=== PATIENT | male | born 1965 | race Caucasian/White ===

== ENCOUNTER 2020-05-26 08:18 | Outpatient (REF) | payer OTHER, SELFPAY ==
[2020-05-26 10:59] LABS: Alanine Aminotransferase 24 U/L (0-40); Blood Urea Nitrogen 18 mg/dL (9-16); Cholesterol 142 mg/dL; Estimated Glomerular Filt Rate > 60; HDL Cholesterol 41 mg/dL; LDL Cholesterol Calculated 76 mg/dl; Triglycerides 126 mg/dL
[2020-05-26 11:19] LABS: Anion Gap 13 (12-20); Carbon Dioxide 24 mmol/L (22-29); Chloride 103 mmol/L (96-108); Potassium 4.9 mmol/l (3.3-5.1); Sodium 135 mmol/L (135-145); Uric Acid 7.7 mg/dL (3.4-7.0)
== END 2020-05-26 08:19 | disposition home or self-care (01) ==
LOC: HO.10HDL 08:18
PROVIDERS: Visit Provider Family Medicine
DX: E78.00 Pure hypercholesterolemia, unspecified (principal); M10.9 Gout, unspecified
CPT/HCPCS: 80051; 80061; 82550; 82565; 84460; 84520; 84550

== ENCOUNTER 2021-07-15 09:12 | Outpatient (REF) | payer BC, SELFPAY ==
[2021-07-15 10:55] LABS: Anion Gap 10 (12-20); Blood Urea Nitrogen 17 mg/dL (9-16); Carbon Dioxide 25 mmol/L (22-29); Chloride 107 mmol/L (96-108); Estimated Glomerular Filt Rate > 60; Potassium 4.5 mmol/L (3.3-5.1); Sodium 137 mmol/L (135-145)
== END 2021-07-15 09:13 | disposition home or self-care (01) ==
LOC: HO.10HDL 09:12
PROVIDERS: Visit Provider Family Medicine
DX: I10 Essential (primary) hypertension (principal)
CPT/HCPCS: 36415; 80051; 82565; 84520

== ENCOUNTER 2022-06-02 12:29 | Outpatient (REF) | payer OTHER, SELFPAY ==
[2022-06-02 14:01] LABS: Alanine Aminotransferase 22 U/L (0-40); Anion Gap 16 (12-20); Aspartate Amino Transferase 24 U/L (5-37); Blood Urea Nitrogen 17 mg/dL (9-16); Carbon Dioxide 25 mmol/L (22-29); Chloride 104 mmol/L (96-108); Estimated Glomerular Filt Rate > 60; Potassium 5.3 mmol/L (3.3-5.1); Sodium 140 mmol/L (135-145)
== END 2022-06-02 12:30 | disposition home or self-care (01) ==
LOC: HO.10HDL 12:29
PROVIDERS: Visit Provider Family Medicine
DX: I10 Essential (primary) hypertension (principal); E78.00 Pure hypercholesterolemia, unspecified; Z79.899 Other long term (current) drug therapy
CPT/HCPCS: 36415; 80051; 82550; 82565; 84450; 84460; 84520

== ENCOUNTER 2023-04-18 12:09 | Outpatient (REF) | payer OTHER, SELFPAY ==
--- NOTE | ~2023-04-18 | XR_ITS ---
EXAMINATION: XR FOOT, LEFT CLINICAL INFORMATION: Left fifth toe pain COMPARISON: None available. TECHNIQUE: AP, lateral, and oblique views of the left foot. FINDINGS: Some mild degenerative changes are present at the first MTP joint as well as in the forefoot. A plantar calcaneal spur is noted. No other abnormality is seen. A finding is not seen to account for the patient's fifth toe pain. XR/XR foot LT min 3V IMPRESSION: Mild degenerative changes as described above. No acute finding.
== END 2023-04-18 12:10 | disposition home or self-care (01) ==
LOC: HO.XRAY 12:09
PROVIDERS: PCP Family Medicine; Visit Provider Family Medicine
DX: M79.675 Pain in left toe(s) (principal)
CPT/HCPCS: 73630

== ENCOUNTER 2023-05-28 08:54 | Outpatient (REF) | payer OTHER, SELFPAY ==
[2023-05-28 11:23] LABS: Anion Gap 14 (12-20); Blood Urea Nitrogen 12 mg/dL (9-16); Carbon Dioxide 25 mmol/L (22-29); Chloride 105 mmol/L (96-108); Estimated Glomerular Filt Rate > 60; Potassium 4.7 mmol/L (3.3-5.1); Sodium 139 mmol/L (135-145)
== END 2023-05-28 08:55 | disposition home or self-care (01) ==
LOC: HO.10HDL 08:54
PROVIDERS: Visit Provider Family Medicine
DX: I10 Essential (primary) hypertension (principal)
CPT/HCPCS: 36415; 80051; 82565; 84520

== ENCOUNTER 2023-08-21 08:27 | Outpatient (REF) | payer OTHER, SELFPAY ==
[2023-08-21 12:27] LABS: Alanine Aminotransferase 21 U/L (0-40); Aspartate Amino Transferase 19 U/L (5-37); Cholesterol 166 mg/dL (<200); HDL Cholesterol 38 mg/dL (>40); LDL Cholesterol Calculated 84 mg/dL (<100); Triglycerides 223 mg/dL (<150)
== END 2023-08-21 08:28 | disposition home or self-care (01) ==
LOC: HO.10HDL 08:27
PROVIDERS: Visit Provider Family Medicine
DX: E78.00 Pure hypercholesterolemia, unspecified (principal); Z79.899 Other long term (current) drug therapy
CPT/HCPCS: 36415; 80061; 82550; 84450; 84460

== ENCOUNTER 2024-08-01 09:20 | Outpatient (REF) | payer BC, SELFPAY ==
--- OUTSIDE RECORDS SUMMARY | 2024-08-01 09:57 | XMS_ITS | Patient Health Record ---
Author Organization [facility] Address [address] [place] [phone] Care Team Providers Care Yarn Winder Name Role Phone Norman LOPEZ, Jim Primary Care Provider Unavailab Rene Braden Jr Unavailable [phone] REASON FOR REFERRAL No Information MEDICATIONS Medication SIG (Take, Route, Frequency, Duration) Notes Start Date End Date Status MiraLax (colon prep) 8.3 ounce ((238) grams mixed with Gatorade or Crystal Light orally begin at 5:00 p.m. the day before the procedure for 1 day 05/16/2019 Active Lisinopril 40 MG 1 tablet Orally Once a day 12/24/2013 Active Simvastatin 20 MG 1 tablet in the even ing Orally Once a day 12/24/2013 Active Ibuprofen 800 MG 1 tablet with food o r milk as needed Orally prn Active IMMUNIZATIONS Vaccine Route Administration Date Status Comme nts Influenza Unknown 05/30/2018 Administered SOCIAL HISTORY Sex Assigned At : Social History Observation Description Sex Assigned At Unknown Alcohol Screen Question Answer Notes Did you have a drink contain ing alcohol in the past year? Yes How often did you have a dri nk containing alcohol in the past year? 2 to 4 times a month (2 points) How many drinks did you have on a typical day when you were drinking in the past year? 1 or 2 drinks (0 point) How often did you have 6 or more drinks on one occasion in the past year? Never (0 point) Points 2 Interpretation Negative PROBLEMS Problem Type ICD Code Onset Dates Problem Status W/U Status Risk SNOMED Code Notes Problem Colon cancer screening (V76.51) Active confirmed [id number] Encounters Encounter Location Date Provider Diagnosis [facility] [address] [place] [address] 07/09/2024 Rene Bain Jr PLAN OF TREATMENT Future Test Test Name Order Date COLONOSCOPY 05/16/2019 Next Appt Details Provider Name:Rene sexton Jr, 11/19/2024 10:20:00 AM, [address] [facility], [address], [place], [address], Insurance Providers Payer Name Payer Address Payer Phone Subscriber Number Group Number Insured Name Patient Relationship to Insured Coverage Start Date Coverage End Date [facility] [place] [place] [employer] PROF[employer]AL CLAIMS [address] [place] [address] [id number] CHELY MARTINEZ Self - patient is the insured MEDICAL (GENERAL) HISTORY Medical History History ICD Code hypertension elevated cholesterol anxiety sciatica Surgical History Surgery Date(Month/Year) carpal tunnel release-(both wrists)
[2024-08-01 10:58] LABS: Alanine Aminotransferase 24 U/L (0-40); Anion Gap 11 (12-20); Aspartate Amino Transferase 32 U/L (5-37); Blood Urea Nitrogen 13 mg/dL (9-16); Carbon Dioxide 25 mmol/L (22-29); Chloride 106 mmol/L (96-108); Estimated Glomerular Filt Rate > 60; Potassium 4.4 mmol/L (3.3-5.1); Sodium 138 mmol/L (135-145)
== END 2024-08-01 09:21 | disposition home or self-care (01) ==
LOC: HO.10HDL 09:20
PROVIDERS: Visit Provider Family Medicine
DX: I10 Essential (primary) hypertension (principal); E78.00 Pure hypercholesterolemia, unspecified; Z79.899 Other long term (current) drug therapy
CPT/HCPCS: 36415; 80051; 82550; 82565; 84450; 84460; 84520

== ENCOUNTER 2025-01-20 06:51 | Day surgery (SDC) | payer BC, SELFPAY ==
--- OUTSIDE RECORDS SUMMARY | 2024-12-24 12:03 | XMS_ITS ---
Author Organization [facility] Address [address] [place] [phone] Care Team Providers Care Supervisor Curing Room Name Role Phone Norman LOPEZ, Jim Primary Care Provider Unavailab Rene Braden Jr Unavailable REASON FOR VISIT COLON RECALL Encounters Encounter Location Date Provider Diagnosis [facility] [address] [facility] [address] [place] [phone] 07/09/2024 Rene Bain Jr Plan Of Treatment Next Appt Details Provider Name:Rene sexton Jr, 01/20/2025 08:20:00 AM, [address] [place] [address] , [place], [place], [phone], Progress Notes * CHELY MARTINEZDOB: [birth year] (58 yo M)Acc No.[id number]:07/09/2024 Patient:?JUMA MARTINEZREY :1965???Age:58 Y???Sex:Male Address:[address] [place] [address], [place], [address] * true * Date:? Generated for Printi ng/Fasuzeg/eTransmitting on:?12/24/2024 12:03 PM EDT
[2025-01-16 13:33] VITALS: BMI 34.4
--- NOTE | 2025-01-19 10:15 | HO.ANESPROP2 ---
Documented by User: Betty Barnhart NP 01/19/25 10:15 HPI - Anesthesia Eval Consult details Narrative: 59yo M for Colonoscopy [facility] Past Medical History Medical History Sciatica Anxiety Elevated cholesterol HTN (hypertension) Surgical History Surgical History H/O colonoscopy History of bilateral carpal tunnel release Social History Social History Household Members: Spouse Are you a primary home care associate to a significant other at home: No Do you presently have visiting nurse or other home services: No Patient Tobacco Use Status: Former Tobacco user Tobacco use type: Cigarette Substance Use Frequency: Occasionally Have you been hit, kicked, punched, or otherwise hurt by someone within the past year? If so, by whom?: No Are you DNR?: No Advance Directives: No Advance Directives Information Provided: Yes Poor oral hygiene: No Meds Allergies Allergy/AdvReac Type Severity Reaction Status Date / Time No Known Allergies (No Known Allergy Verified 01/20/25 07:15 Allergies*) Home Medications ?Medication ?Instructions ?Recorded ?Confirmed ?Last Taken ?Type coenzyme Q10 10 mg capsule (Co 10 mg PO TID 01/16/25 01/16/25 Unknown History Q-10) ibuprofen 800 mg tablet 800 mg PO Q6H PRN Pain 01/16/25 01/16/25 01/13/25 History lisinopril 10 mg tablet 10 mg PO DAILY 01/16/25 01/16/25 Unknown History simvastatin 40 mg tablet 40 mg PO BEDTIME 01/16/25 01/16/25 Unknown History Exam Height,Weight and Vital Signs: Height 5 ft 8 in Weight 102.512 kg Assessment and Plan Assessment Anesthesia Assessment: Chart Reviewed Documented by User: Radha Uriostegui MD 01/20/25 08:04 [facility] Past Medical History Medical History Sciatica Anxiety Elevated cholesterol HTN (hypertension) Surgical History Surgical History H/O colonoscopy History of bilateral carpal tunnel release History of Problems with Anesthesia: No Social History Social History Household Members: Spouse Are you a primary home care associate to a significant other at home: No Do you presently have visiting nurse or other home services: No Patient Tobacco Use Status: Former Tobacco user Tobacco use type: Cigarette Substance Use Frequency: Occasionally Have you been hit, kicked, punched, or otherwise hurt by someone within the past year? If so, by whom?: No Are you DNR?: No Advance Directives: No Advance Directives Information Provided: Yes Poor oral hygiene: No Meds Allergies Allergy/AdvReac Type Severity Reaction Status Date / Time No Known Allergies (No Known Allergy Verified 01/20/25 07:15 Allergies*) Home Medications ?Medication ?Instructions ?Recorded ?Confirmed ?Last Taken ?Type coenzyme Q10 10 mg capsule (Co 10 mg PO TID 01/16/25 01/16/25 Unknown History Q-10) ibuprofen 800 mg tablet 800 mg PO Q6H PRN Pain 01/16/25 01/16/25 01/13/25 History lisinopril 10 mg tablet 10 mg PO DAILY 01/16/25 01/16/25 Unknown History simvastatin 40 mg tablet 40 mg PO BEDTIME 01/16/25 01/16/25 Unknown History Exam Airway Mallampati Class: III TM Dist: >3cm Neck ROM: Full Loose/Missing/Broken Teeth: No Heart: RRR Lungs: CTA Assessment and Plan Final Anesthetic Review History of Problems with Anesthesia: No NPO: Yes ASA Class: II Final Preanesthetic Review: Meds/Allgs Chart Reviewed, Consent Obtained/Reviewed and Anes Risks/Benef Reviewed Patient Risk: Low Procedure Risk: Low Anesthetic Plan Anesthetic Plan: MAC: Disposition: Standard PACU
[2025-01-20 07:00] VITALS: BMI 33.0
[2025-01-20 07:13] VITALS: BP 130/88; PULSE 88; RESP 18; TEMP 36.8; O2SAT 96
[2025-01-20] MEDS: Lactated Ringers 1,000 ML 100 ML IVCONT (07:13)
--- NOTE | 2025-01-20 08:00 | MHC.SHP ---
Pre-Procedural Eval Section A - 24 Hr Update-Section A only Date of Service: 01/20/25 Section B - Complete if H&P > 30 days Chief Complaint: Encounter for screening for malignant neoplasm of Details of Present Illness: see H&P no changes Relevant Family History (Specify if Yes): No Relevant Social History: None Present Medications: see Short Stay Collaborative assessment Medical History: No relevant PMH History of Previous Operations: No relevant previous surgery Allergies: Allergies Allergy/AdvReac Type Severity Reaction Status Date / Time No Known Allergies (No Known Allergy Verified 01/20/25 07:15 Allergies*) Review of Systems Sugical H&P ROS: Negative: Constitution, Cardiovascular, Respiratory, Neurological, Psychiatric, Hem-Onc, Allergic/Immunologic, Gastrointestinal, Genitourinary, Musculoskeletal, Integumentary, Endocrine and Eyes/Ears/Nose/Throat Exam Surgical H&P Exam: Normal: HEENT, Normal: Heart, Normal: Lungs, Normal: Extremities, Normal: Abdomen, Normal: Skin and Normal: Neurological Plan Diagnosis/Plan: Unchanged I have reviewed the history and physical and performed a pertinent physical examination on my patient. No changes have occurred unless specified. Time Spent With Patient Time: Total time managing care of this patient today ____ minutes.
[2025-01-20 08:30] VITALS: BP 106/60; PULSE 77; RESP 16; TEMP 36.4; O2SAT 98
[2025-01-20 08:45] VITALS: BP 116/84; PULSE 69; RESP 16; TEMP 36.5; O2SAT 95
--- NOTE | 2025-01-21 07:25 | OP_ITS ---
DATE OF SERVICE: 01/20/2025 SURGEON: Rene Bain MD INDICATIONS: Colon cancer screening. PREOPERATIVE DIAGNOSIS: POSTOPERATIVE DIAGNOSIS: PROCEDURE PERFORMED: Colonoscopy to the terminal ileum with biopsy. ESTIMATED BLOOD LOSS: COMPLICATIONS: ANESTHESIA: Monitored anesthesia care. ASSISTANTS: SPECIMENS: DESCRIPTION OF PROCEDURE: A history and physical was performed. The risks and benefits of the procedure were explained to the patient. Informed consent was obtained. The patient was placed in the left lateral decubitus position. A digital rectal exam was performed and was found to be normal. The Olympus pediatric video colonoscope was introduced into the rectum and advanced to the cecum. The cecum was identified by transillumination, palpation, and identification of ileocecal valve. Examination was performed. The scope was removed. He tolerated the procedure well and was returned to the recovery area in stable condition. FINDINGS: The terminal ileum was normal. The visualized colonic mucosa was normal. The quality of the prep was good. There was a single polyp in the right colon measuring less than 5 mm that was removed with a biopsy forceps. No other polyps were identified. Retroflexed examination was normal. IMPRESSION: Colon polyp. RECOMMENDATION: Follow up the biopsy results. MD DELMAR Gong/DELTA / [id number]
== END 2025-01-20 09:17 | disposition home or self-care (01) ==
PROVIDERS: PCP Family Medicine; Visit Provider Internal Medicine Gastroenterology
PROC: 0DJD8ZZ Inspection of Lower Intestinal Tract, Via Natural or Artificial Opening Endoscopic (ICD-10-PCS; CPT 45378; principal; 2025-01-20 08:20)
DX: Z12.11 Encounter for screening for malignant neoplasm of colon (principal); D12.2 Benign neoplasm of ascending colon; Z86.0101 Personal history of adenomatous and serrated colon polyps; I10 Essential (primary) hypertension; E78.5 Hyperlipidemia, unspecified; Z87.891 Personal history of nicotine dependence; Z79.02 Long term (current) use of antithrombotics/antiplatelets; Z79.899 Other long term (current) drug therapy
CPT/HCPCS: 45380; 88305; J2003; J2250; J2704

== ENCOUNTER 2025-02-04 09:23 | Outpatient (AMB) | payer BC, SELFPAY ==
--- NOTE | 2025-02-04 08:35 | MHC.PC.OV ---
Vital Signs 02/04/25 08:36 Height 5 ft 8 in Weight 223 lb BMI 33.9 BP 128/80 Blood Pressure Location Lt brachial Position Sitting Pulse 72 Pulse Source Pulse Oximeter Temp 98 F Temp Source Axillary Pulse Oximetry (%) 98 Oxygen Delivery Method Room Air Intake Visit Reasons: 6 MO F/UP- SIMON PT Paper Reeler Required: No Accompanied by: Self / Same As Patient Allergies No Known Allergies (No Known Allergies*) Allergy (Verified 02/04/25 08:36) Tobacco use date assessed: 02/04/25 Dental Screening Dental Screen Date: 02/04/25 Did you have a dental visit in the last 12 months?: Yes Did you have a dental problem in the last 6 months where you did not have access to dental care?: No PFSH Medical History Hyperlipidemia Sciatica Anxiety HTN (hypertension) Surgical History H/O colonoscopy (~01/21/25) History of bilateral carpal tunnel release Family History (Updated 02/04/25 @ 09:42 by Angie Ponce MA) Mother No problems noted. Father No problems noted. Social History Household Members: Spouse Housing: House Are you a primary home care specialist to a significant other at home: No Do you presently have visiting nurse or other home services: No Patient Tobacco Use Status: Former Tobacco user Tobacco use type: Cigarette e-Cigarette/Vaping Use: Former Use Current occupational status: employed Cognitive needs: No Hearing needs: No Vision needs: Yes (rx glasses) Questionnaire PHQ-9 Over the last 2 weeks, how often have you been bothered by any of the following problems? 1. Little interest or pleasure in doing things: not at all 2. Feeling down, depressed, or hopeless: not at all 3. Trouble falling or staying asleep, or sleeping too much: not at all 4. Feeling tired or having little energy: not at all 5. Poor appetite or overeating: not at all 6. Feeling bad about yourself - or that you are a failure or have let yourself or your family down: not at all 7. Trouble concentrating on things, such as reading the newspaper or watching television: not at all 8. Moving or speaking so slowly that other people could have noticed. Or the opposite - being so fidgety or restless that you have been moving around a lot more than usual: not at all 9. Thoughts that you would be better off or of hurting yourself in some way: not at all Total score: 0 Depression Screening Interpretation: Negative Depression Screening Done: Yes Source: Developed by Drs. Karson Patricia, Salud Vyas, Varghese Fuentes and colleagues, with an educational amadou from [employer]. Thrive Questionnaire Date Thrive assessed: 02/04/25 I am a: Patient Within the past 12 months, did the food you bought not last and you didn't have the money to get more?: Never true Within the past 12 months, did you worry whether your food would run out before you got money to buy more?: Never true Do you have trouble paying for medicines?: No Do you have trouble getting transportation to medical appointments?: No Do you have trouble paying your heating and electricity bill?: No Do you have trouble taking care of your child, family member or friend?: No Do you have trouble with day-to-day activities such as bathing, preparing meals, shopping, managing finances, etc.?: No Are you currently unemployed and looking for a job?: No Are you interested in more education?: No THRIVE Score: 0 AUDIT C Alcohol Use Questionnaire (AUDIT-C) 1. How often do you have a drink containing alcohol?: Monthly or less 2. How many drinks containing alcohol do you have on a typical day when you are drinking?: 1 or 2 3. How often do you have six or more drinks on one occasion?: Less than monthly Total Score: 2 AIDE-7 AMB Questionnaire AIDE-7 Date AIDE - 7 assessed: 02/04/25 Feeling nervous, anxious, or on edge: 0 = Not at all Not being able to stop or control worryin = Not at all Worrying too much about different things: 0 = Not at all Trouble relaxin = Not at all Being so restless that it is hard to sit still: 0 = Not at all Becoming easily annoyed or irritable: 0 = Not at all Feeling afraid as if something awful might happen: 0 = Not at all Total AIDE-7 score (0-4 normal; 5-9 mild; 10-14 moderate; 15-21 severe): 0 Source: Developed by Drs. Karson Patricia, Salud Vyas, Varghese Fuentes and colleagues, with an educational amadou from [employer]. Physical exam (Primary Care) Vital Signs: Last Vital Signs Temp 98 F 02/04/25 08:36 Pulse 72 02/04/25 08:36 BP 128/80 02/04/25 08:36 Pulse Ox 98 02/04/25 08:36 Oxygen Delivery Method Room Air 02/04/25 08:36 BMI result Body Mass Index 33.9 Tobacco/Smoking Status: Tobacco use Status Tobacco use date assessed 02/04/25 02/04/25 08:38 Patient Tobacco Use Status Former Tobacco user 02/04/25 08:38 Tobacco use type Cigarette 02/04/25 08:38 e-Cigarette/Vaping Use Former Use 02/04/25 08:38 PHQ-9: PHQ-9 Score PHQ-9: Total score 0 02/04/25 09:43 Depression Screening Interpretation: Negative Thrive Assessment: Date of Thrive Assessment Date Thrive assessed 02/04/25 02/04/25 08:38 Coding Level of Care Code New Pt Level 4 (28367) Complex EM visit Add On G2211 Diagnoses Hyperlipidemia E78.5 HTN (hypertension) I10 Anxiety F41.9 Assessment & Plan Assessment & Plan (1) Hyperlipidemia: Code(s): E78.5 - Hyperlipidemia, unspecified Category: Medical (2) HTN (hypertension): Code(s): I10 - Essential (primary) hypertension Category: Medical Plan: BP is in range, continue current medications (3) Anxiety: Code(s): F41.9 - Anxiety disorder, unspecified Category: Medical Plan: Mostly has situational anxiety. Not on current meds. Plan History of Present Illness - The patient is a 59-year-old male presenting with a wellness visit and management of anxiety disorder. - Anxiety disorder: The patient reports late-onset anxiety beginning around age 48, triggered by an episode [place] an amusement park and subsequently during flights. - The anxiety episodes are not debilitating, and the patient has learned to manage them mentally without medication. - Previously prescribed medication for anxiety was discarded as it was no longer needed. - Preventative care: The patient has undergone a colonoscopy with normal results. 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 Review of Systems - Psychiatric: Reports occasional anxiety episodes, denies need for medication. Physical Exam General: Cooperative and healthy appearing Nutritional Appearance: Well nourished Orientation/consciousness: Patient oriented x3 Limitations: No limitations Head: Normal to inspection General: Appearance normal, both eyes and all related structures Neck: Normal visual inspection Chest: Normal palpation of entire chest wall Respiratory: N ormal respiratory effort Neurology: Patient oriented x3, no disorientation or confusion noted. Results - Colonoscopy: Normal results reported. Plan 1. Anxiety Disorder - Continue current management without medication as the patient reports effective self-management of anxiety. 2. Preventative Care: Colonoscopy - Colonoscopy results were normal, no further immediate action required. Discussion Notes I discussed with the patient the management of his anxiety disorder, emphasizing the effectiveness of his current self-management strategies without medication. We also reviewed the normal results of his recent colonoscopy, confirming no further immediate action is necessary. Follow-up was scheduled for six months, and the patient was advised to contact us if any issues arise before then. Patient Instructions - Continue managing anxiety without medication as currently effective. - Schedule follow-up appointment in six months. - Contact the clinic if any new symptoms or concerns arise. Orders: Orders Liver Panel Today E78.5 - Hyperlipidemia, unspecified, F41.9 - Anxiety disorder, unspecified, I10 - Essential (primary) hypertension Complete Blood Count no Diff Today E78.5 - Hyperlipidemia, unspecified, F41.9 - Anxiety disorder, unspecified, I10 - Essential (primary) hypertension Basic Metabolic Panel Today E78.5 - Hyperlipidemia, unspecified, F41.9 - Anxiety disorder, unspecified, I10 - Essential (primary) hypertension Lipid Panel Today E78.5 - Hyperlipidemia, unspecified, F41.9 - Anxiety disorder, unspecified, I10 - Essential (primary) hypertension Thyroid Stimulating Hormone Today E78.5 - Hyperlipidemia, unspecified, F41.9 - Anxiety disorder, unspecified, I10 - Essential (primary) hypertension UA and rflx microscopic Today E78.5 - Hyperlipidemia, unspecified, F41.9 - Anxiety disorder, unspecified, I10 - Essential (primary) hypertension
[2025-02-04 08:36] VITALS: BP 128/80; PULSE 72; TEMP 36.6; O2SAT 98; BMI 33.9
--- OUTSIDE RECORDS SUMMARY | 2025-02-04 09:46 | XMS_ITS | Patient Health Record ---
Author Organization [facility] Address [address] [place] [address] Care Team Providers Care Hip Hop Performers Name Role Phone BJORN LEMA Primary Care Provider Rene Pinto Jr Unavailable [phone] Allergies No Known Allergies Results Component Value Reference Range Notes Pathology Reviewed date:01/26/2025 04:33:49 PM Interpretation: Performing Lab:[facility], [address] [place] [phone] Notes/Report: Reason For Referral Referring Provider First Name Jim Referring Provider Last Name Norman Referring Provider Speciality Internal M edicine Referred Organization [facility] Referred Provider Rene Bain Jr Referred Address [address],[place] [address],[place], [place],[address], Referred Provider Specialty Gastroentero logy General Notes Barbara Marks 2024 11:06:21 AM >requested referral from [place] at Dr. Hurtado' for appt with Dr. Bain on 11-19-24 Referral Priority Routine Referring Provider First Name BJORN Referring Provider Last Name TOREY Referred Organization [facility] Referred Provider Rene Bain Jr Referred Address [address] [place] [address],[address],[address],[place] Referred Provider Specialty Gastroentero logy General Notes Barbara Marks 2024 03:30:34 PM >requested call back from Dr. Lema's office to see if they will issue a referral before the patient sees Dr. Lema. Has a procedure with Kendrick Alexis Dawn 01/08/2025 09:47:56 AM >Dr. Lema will issue one referral for his procedure Referral Priority Routine Medications Medication SIG (Take, Route, Fr equency, Duration) Notes Start Date End Date Status Ibuprofen 800 MG 1 tablet with food o r milk as needed Orally prn as needed Active Co Q 10 10 MG as directed Orally Active Simvastatin 10 MG 1 tablet in the even ing Orally Once a day 12/24/2013 Active Lisinopril 40 MG 1 tablet Orally Once a day 2013 Active Immunizations Vaccine Route Administration Date Status Comme nts Influenza Unknown 05/30/2018 Administered Influenza Unknown 11/19/2024 Refused Social History Alcohol Screen Question Answer Notes Did you [...] Never (0 point) Points 2 Interpretation Negative Problems Problem Type SNOMED Code ICD Code Onset Dates Problem Status W/U Status Risk Notes Problem 923061407 Colon cancer screening (V76.51) Active confirmed Problem Colon cancer screening (417168202) Colon cancer screening (Z12.11) Active confirmed Problem Hemorrhoids (21858228) Hemorrhoids (K64.9) Active confirmed Problem [facility] current use of non-steroidal anti-inflammator y drug (581990777217067 ) NSAID long-term use (Z79.1) Active confirmed Problem History of adenomatous polyp of colon (184559488) History of adenomatous polyp of colon (Z86.0101) Active confirmed Vital Signs Temperature 98.0 degrees Fahrenheit 11/19/2024 Blood pressure diastolic 01 mm Hg 11/19/2024 Height 68 in 11/19/2024 Blood pressure systolic 001 mm Hg 11/19/2024 Weight 226 lbs 11/19/2024 BMI 34.36 kg/m2 11/19/2024 Encounters Encounter Location Date Provider Diagnosis [facility] Outpatient [address] [place] [phone] 01/20/2025 Rene Bain Jr Colon cancer screening Z12.11 ; History of adenomatous polyp of colon Z86.0101 and Colon polyps K63.5 [facility] [address] [place] [phone] 11/19/2024 Rene Bain Jr Colon cancer screening Z12.11 ; Hemorrhoids K64.9 ; History of adenomatous polyp of colon Z86.0101 and NSAID long-term use Z79.1 [facility] [address] [place] [phone] 07/09/[address] [facility] [address] [place] [phone] 01/26/2025 Rene Bain Jr Assessments Encounter Date Diagnosis (ICD Code) Assessment Notes Treatment Notes Treatment Clinical Notes Section Notes 01/20/2025 Colon cancer screening (ICD-10 - Z12.11) 01/20/2025 History of adenomatous polyp of colon (ICD-10 - Z86.0101) 11/19/2024 Colon cancer screening (ICD-10 - Z12.11) Colonoscopy material was printed We discussed the care and treatment of hemorrhoids today. We discussed a high-fiber diet. We recommended further evaluation of his symptoms with colonoscopy because of his family history of colon polyps and colon cancer. He is aware of risks and benefits and agrees to proceed. He is advised to stop ibuprofen 1 week before the procedure. 11/19/2024 Hemorrhoids (ICD-10 - K64.9) We discussed the care and treatment of hemorrhoids today. We discussed a high-fiber diet. We recommended further evaluation of his symptoms with colonoscopy because of his family history of colon polyps and colon cancer. He is aware of risks and benefits and agrees to proceed. He is advised to stop ibuprofen 1 week before the procedure. 01/20/2025 Colon polyps (ICD-10 - K63.5) 11/19/2024 History of adenomatous polyp of colon (ICD-10 - Z86.0101) We discussed the care and treatment of hemorrhoids today. We discussed a high-fiber diet. We recommended further evaluation of his symptoms with colonoscopy because of his family history of colon polyps and colon cancer. He is aware of risks and benefits and agrees to proceed. He is advised to stop ibuprofen 1 week before the procedure. 11/19/2024 NSAID long-term use (ICD-10 - Z79.1) We discussed the care and treatment of hemorrhoids today. We discussed a high-fiber diet. We recommended further evaluation of his symptoms with colonoscopy because of his family history of colon polyps and colon cancer. He is aware of risks and benefits and agrees to proceed. He is advised to stop ibuprofen 1 week before the procedure. Plan Of Treatment Future Test Test Name Order Date COLONOSCOPY 05/16/2019 Insurance Providers Payer Name Payer Address Payer Phone Subscriber Number Group Number Insured Name Patient Relationship to Insured Coverage Start Date Coverage End Date [facility] PROFESSIONAL CLAIMS [address] [place] [address] [id number] CHELY MARTINEZ Self - patient is the insured Medical (General) History Medical History History ICD Code hypertension elevated cholesterol anxiety sciatica Surgical History Surgery Date(Month/Year) carpal tunnel release-(both wrists)
--- OUTSIDE RECORDS SUMMARY | 2025-02-04 09:46 | XMS_ITS | Patient Health Record ---
[facility] Address [address] [place] [address] Care Team Providers Care Music Manager Name Role Phone Norman LOPEZ, Jim Primary Care Provider Unavailab Keely Marquez Unavailable [phone] Reason For Referral No Information Medications Medication SIG (Take, Route, Fr equency, Duration) Notes Start Date End Date Status Lisinopril 20 MG 1 tablet Orally Once a day Active Simvastatin 40 MG 1 tablet in the even ing Orally Once a day Active Problems No Known Problems Plan Of Treatment No Information Insurance Providers Payer Name Payer Address Payer Phone Subscriber Number Group Number Insured Name Patient Relationship to Insured Coverage Start Date Coverage End Date [facility] [address] [facility] [address] [id number] Panchito Davis Self - patient is the insured Medical (General) History Medical History History ICD Code High blood pressure Chicken pox Surgical History Surgery Date(Month/Year) carpal tunnel surgery (both wirst) 06/09
== END 2025-02-04 09:54 | disposition home or self-care (01) ==
LOC: HO.HMCHD 09:26
PROVIDERS: PCP Internal Medicine; Visit Provider Internal Medicine
DX: E78.5 Hyperlipidemia, unspecified (principal); I10 Essential (primary) hypertension; F41.9 Anxiety disorder, unspecified

== ENCOUNTER 2025-07-28 12:10 | Outpatient (REF) | payer OTHER, SELFPAY ==
--- OUTSIDE RECORDS SUMMARY | 2025-01-20 03:20 | XMS_ITS ---
Author Organization [facility] Address [address] [place] [address] Care Team Providers Care Prescription Clerk Lenses Name Role Phone BJORN LEMA Primary Care Provider Rene Pinto Jr Unavailable [phone] REASON FOR VISIT screening Encounters Encounter Location Date Provider Diagnosis [facility] [address] [place], [place] [phone] 01/20/2025 Rene Bain Jr Colon cancer screening Z12.11 ; History of adenomatous polyp of colon Z86.0101 and Colon polyps K63.5 Assessments Encounter Date Diagnosis (ICD Code) Assessment Notes Treatment Notes Treatment Clinical Notes Section Notes 01/20/2025 Colon cancer screening (ICD-10 - Z12.11) 01/20/2025 History of adenomatous polyp of colon (ICD-10 - Z86.0101) 01/20/2025 Colon polyps (ICD-10 - K63.5) Plan Of Treatment No Information Progress Notes * CHELY MARTINEZDOB: [birth year] (59 yo M)Acc No.[id number]:01/20/2025 COLON WITH MAC Patient: CHELY JANE Provider: Amy Bain MD :1965 A ge:59 Y S ex:Male Date:01/20/2025 Address:[address] [place], [place] [phone] Pcp:BJORN LEMA Subjective: * Chief Complaints: * S creening Assessment: * Assessment: 1. C olon cancer screening - Z12.11 (Primary) 2 . H istory of adenomatous polyp of colon - Z86.0101 3 . C olon polyps - K63.5 Plan: * Procedure Codes: 4 5380 COLONOSCOPY AND [id number] INTRVL 3+YRS PTS CLNSCP DOCD Billing Information: * Procedure Codes: 94751 COLONOSCOPY AND BIOPSY. 0529F INTRVL 3+YRS PTS CLNSCP DOCD. * The named appointment provid er may or may not be the originator of this progress note, and it is not deemed complete until electronically signed by the appointment provider. Sign off status: Pending * Provider: Amy Bain MD Date: 0 01/20/2025 Generated for Angie meza/Meg/Demarcusitting on: 04:15 PM EST
[2025-07-28 13:22] LABS: Hematocrit 46.9 % (42.0-52.0); Hemoglobin 16.0 g/dl (14.0-18.0); Mean Corpuscular HGB Conc 34.1 g/dl (31.0-36.0); Mean Corpuscular Hemoglobin 29.1 pg (27.0-33.0); Mean Corpuscular Volume 85.4 fL (80.0-98.0); NRBC Abs Auto 0.000 X10*3/uL (0.0-0.012); NRBC Pct Auto 0.0 /100WBC (0.0-0.2); Platelet Count 229 X10*3/uL (160-400); Red Blood Count 5.49 X10*6/uL (4.60-5.80); White Blood Count 10.4 X10*3/uL (4.8-10.8)
[2025-07-28 13:42] LABS: Alanine Aminotransferase 21 U/L (0-40); Albumin Level 4.6 g/dL (3.5-5.0); Alkaline Phosphatase 59 U/L (39-117); Anion Gap 12 (12-20); Aspartate Amino Transferase 49 U/L (5-37); Blood Urea Nitrogen 17 mg/dL (9-16); Calcium 9.4 mg/dL (8.4-10.2); Carbon Dioxide 24 mmol/L (22-29); Chloride 108 mmol/L (96-108); Cholesterol 181 mg/dL (<200); Estimated Glomerular Filt Rate > 60; HDL Cholesterol 43 mg/dL (>40); Potassium 4.0 mmol/L (3.3-5.1); Sodium 140 mmol/L (135-145); Total Protein 7.1 g/dL (6.5-8.0); Triglycerides 369 mg/dL (<150)
[2025-07-28 14:04] LABS: Thyroid Stimulating Hormone 1.01 uIU/mL (0.32-4.0)
--- OUTSIDE RECORDS SUMMARY | 2025-07-28 16:16 | XMS_ITS | Clinical Summary ---
Author Organization [facility] Address [address] [place] [address] Phone Care Team Providers Care Bisque Ware Dipper Name Role Phone Jim Austin MD Primary Care Provider Allergies No known active allergies Medications lisinopril (PRINIVIL,ZESTR IL) 10 MG tablet Take 1 tablet by mouth every morning. 4 Active simvastatin (ZOCOR) 40 MG tablet Take 40 mg by mouth nightly at bedtime. at bedtime. 4 Active meloxicam (MOBIC) 15 MG tablet Take 1 tablet (15 mg total) by mouth daily. 20 tablet 4 Active Additional Information Patient taking differently:15 mg Oral Daily,Takes for bursitis flare up, Reported on 03/12/2024 Active Problems No known active problems Social History Tobacco Use Types Packs/Day Years Used Date Smoking Tobacco: Former Cigarettes Smokeless Tobacco: Never Tobacco Cessation:Counseling Given: Not Answered Alcohol Use Standard Drinks/Week Comments Not Currently 0 (1 standard drink = 0.6 oz pur e alcohol) Education Answer Date Recorded Are you interested in more education? Not on radha e 10/26/2023 Are you concerned about learning? Not on file 10/26/2023 No 10/26/2023 No 10/26/2023 Digital Access Answer Date Recorded No 10/26/2023 No 10/26/2023 Reliable internet access at home? Not on file 10/26/2023 Device with a working camera? Not on file Sex and Gender Information Value Date Recorded Sex Assigned at Not on file Legal Sex Male 8:29 AM EDT Gender Identity Not on file Sexual Orientation Not on file Last Filed Vital Signs Vital Sign Reading Time Taken Comments Blood Pressure 150/92 01/04/2024 9:34 AM EDT Pulse 75 01/04/2024 9:34 AM EDT Temperature 36.7 C (98 F) 01/04/2024 9:34 AM EDT Respiratory Rate 16 01/04/2024 9:34 AM EDT Oxygen Saturation 98% 01/04/2024 9:34 AM EDT Inhaled Oxygen Concentration - - Weight 102.1 kg (225 lb) 03/12/2024 9:56 AM EDT Height 172.7 cm (5' 8 ) 10/26/2023 11:57 AM EDT Body Mass Index 34.21 10/26/2023 11:57 AM EDT Plan of Treatment Health Maintenance Due Date Last Done Comments Adult Td,Tdap Booster 1963 CREATININE LEVEL 1963 LIPID PANEL 1963 POTASSIUM LEVEL 1963 DEPRESSION SCREENING 1975 SMOKING Hx and SMOKELESS TOB ACCO SCREENING 11/16/1976 HEPATITIS C SCREENING 11/16/1981 HIV ONE-TIME SCREENING (18-6 5 YEARS) 11/16/1981 SCREENING FOR DIABETES 11/16/1998 COLOGUARD 11/16/2008 COLONOSCOPY 11/16/2008 COLORECTAL CANCER SCREENING 11/16/2008 FIT TEST 11/16/2008 FOBT 11/16/2008 SIGMOIDOSCOPY 11/16/2008 VIRTUAL COLONOSCOPY 11/16/2008 PNEUMOCOCCAL VACCINES (50+ y ears) (1 of 1 - PCV) 11/16/2013 ZOSTER VACCINES (1 of 2) 11/16/2013 INFLUENZA VACCINE (#1) 2025 COVID-19 VACCINE ( - 2024-2 6 season) 2025 RSV VACCINE (1 - 1-dose 75+ series) 11/16/2038 HEPATITIS A VACCINES Aged Out No long er eligible based on patient's age to complete this topic HIB VACCINES Aged Out No longer eligi ble based on patient's age to complete this topic MENINGOCOCCAL VACCINES (ACWY) Aged Out No longer eligible based on patient's age to complete this topic MENINGOCOCCAL VACCINES (B) Aged Out N o longer eligible based on patient's age to complete this topic Medical Devices Not on file Insurance HMO O O O O O Care Teams Bisque Ware Dipper Relationship Specialty Start Date End Date Jim Austin MD [address] [place] [address] [phone] PCP - General Internal Medicine 10/26/23 Additional Source Comments The information contained in this document represents components of the legal health record. It is not the complete legal health record.[facility]
--- OUTSIDE RECORDS SUMMARY | 2025-07-28 16:16 | XMS_ITS | Patient Health Record ---
Author Organization [facility] Address [address] [place] [address] Care Team Providers Care Systems Integration Analyst Name Role Phone BJORN LEMA Primary Care Provider Rene Pinto Jr Unavailable Allergies No Known Allergies Results Component Value Reference Range Notes Pathology Reviewed date:01/26/2025 04:33:49 PM Interpretation: Performing Lab:[facility], [address] [place] [phone] Notes/Report: Reason For Referral Referring Provider First Name Jim Referring Provider Last Name Norman (RETI RED) Referring Provider Speciality Internal M edicine Referred Organization [facility] Referred Provider Rene Bain Jr Referred Address [address] [place] [address],[address],[address],[place] Referred Provider Specialty Gastroentero logy General Notes Barbara Marks 2024 11:06:21 AM >requested referral from Kenya Hurtado' for appt with Dr. Bain on 11-19-24 Referral Priority Routine Referring Provider First Name BJORN Referring Provider Last Name TOREY Referred Organization [facility] Referred Provider Rene Bain Jr Referred Address [address] [place] [address],[address],[address],[place] Referred Provider Specialty Gastroentero logy General Notes Barbara Marks 2024 03:30:34 PM >requested call back from Dr. Lema's office to see if they will issue a referral before the patient sees Dr. Lema. Has a procedure with Kendrick Alexis Dawn 01/08/2025 09:47:56 AM >Dr. Lema will issue one referral for his procedure Referral Priority Routine Medications Medication SIG (Take, Route, Frequency, Duration) Notes Start Date End Date Status Ibuprofen 800 MG Tablet 1 tablet with fo od or milk as needed Orally prn as needed Active Co Q 10 10 MG Capsule as directed Orally Active Simvastatin 10 MG Tablet 1 tablet in the evening Orally Once a day 12/24/2013 Active Lisinopril 40 MG Tablet 1 tablet Orally Once a day 12/24/2013 Active Immunizations Vaccine Route Administration Date Status Comme nts Influenza Unknown 05/30/2018 Administered Influenza Unknown 11/19/2024 Refused Social History Social History Drugs/Alcohol: Social Info Question Answer Notes Alcohol Screen Did you have a drink containing alcohol in the past year? Yes How often did you have a drink containing alcohol in the past year? 2 to 4 times a month (2 points) How many drinks did you have on a typical day when you were drinking in the past year? 1 or 2 drinks (0 point) How often did you have 6 or more drinks on one occasion in the past year? 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 anti-inflammator y drug (164752905370306 ) NSAID long-term use (Z79.1) Active confirmed Problem History of adenomatous polyp of colon (233584747) History of adenomatous polyp of colon (Z86.0101) Active confirmed Vital Signs Temperature 98.0 degrees Fahrenheit 11/19/2024 Blood pressure diastolic 01 mm Hg 11/19/2024 Height 68 in 11/19/2024 Blood pressure systolic 001 mm Hg 11/19/2024 Weight 226 lbs 11/19/2024 BMI 34.36 kg/m2 11/19/2024 Encounters Encounter Location Date Provider Diagnosis [facility] Outpatient [address] [place] [address], [place] [phone] 01/20/2025 Rene Bain Jr Colon cancer screening Z12.11 ; History of adenomatous polyp of colon Z86.0101 and Colon polyps K63.5 [facility] [address] [place] [phone] 11/19/2024 Rene Odell Tovar Colon cancer screening Z12.11 ; Hemorrhoids K64.9 ; History of adenomatous polyp of colon Z86.0101 and NSAID long-term use Z79.1 [facility] [address] [place] [phone] 01/26/2025 Rene Bain Jr Assessments Encounter Date [...] Insured Coverage Start Date Coverage End Date [facility] PROFESSIONAL CLAIMS [address] [place] [address] [id number] CHELY MARTINEZ Self - patient is the insured Medical (General) History Medical History History ICD Code hypertension elevated cholesterol anxiety sciatica Surgical History Surgery Date(Month/Year) carpal tunnel release-(both wrists)
--- OUTSIDE RECORDS SUMMARY | 2025-07-28 16:16 | XMS_ITS | Patient Health Record ---
Author Organization [facility] Address [address] [place] [address] Care Team Providers Care Crossbar Frame Wirer Name Role Phone Norman LOPEZ, Jim Primary Care Provider Unavailab Keely Marquez Unavailable [phone] Reason For Referral No Information Medications Medication [...] Insured Coverage Start Date Coverage End Date [facility] [address] [facility] [address] [id number] Panchito Davis Self - patient is the insured Medical (General) History Medical History History ICD Code High blood pressure Chicken pox Surgical History Surgery Date(Month/Year) carpal tunnel surgery (both wirst) 06/09
== END 2025-07-28 12:11 | disposition home or self-care (01) ==
LOC: HO.10HDL 12:10
PROVIDERS: Visit Provider Internal Medicine
DX: I10 Essential (primary) hypertension (principal); F41.9 Anxiety disorder, unspecified; E78.5 Hyperlipidemia, unspecified
CPT/HCPCS: 36415; 80048; 80061; 80076; 84443; 85027